=== PATIENT | male | born 1995 | race Caucasian/White ===

== ENCOUNTER 2024-02-02 03:25 | Emergency (ER) | payer SELFPAY ==
[~2024-02-02] VITALS: Ht 177.8 cm; Wt 111.1 kg
[2024-02-02 03:28] VITALS: BP 138/82; PULSE 92; RESP 18; TEMP 98.2; O2SAT 98
[2024-02-02 04:34] VITALS: BP 138/82; PULSE 92; RESP 18; TEMP 98.2; O2SAT 98
== END 2024-02-02 04:34 ==
LOC: MED 03:25
DX: Z02.89 Encounter for other administrative examinations (principal); Z79.899 Other long term (current) drug therapy; V49.88XA Car occupant (driver) (passenger) injured in other specified transport accidents, initial encounter; Y93.89 Activity, other specified; Y92.89 Other specified places as the place of occurrence of the external cause; Y99.8 Other external cause status
CPT/HCPCS: 71045; 99283